=== PATIENT | female | born 1955 | race Caucasian/White ===

== ENCOUNTER 2018-03-22 14:56 | Inpatient (IN) | payer MEDICARE ==
[~2018-03-22] VITALS: Ht 162.6 cm; Wt 83.5 kg
[2018-03-22] MEDS ORDERED: BACL10TA PO (15:16)
[2018-03-22] MEDS ORDERED: HYDR-3972 PO (15:16)
[2018-03-22] MEDS ORDERED: CITR15SO PO (15:16)
[2018-03-22] MEDS ORDERED: CHOL100022 PO (15:17)
[2018-03-22] MEDS ORDERED: POTA10TA21 PO (15:30)
[2018-03-22] MEDS ORDERED: WARF-58 PO (15:30)
[2018-03-22] MEDS ORDERED: DULO60CA63 PO (15:30)
[2018-03-22] MEDS ORDERED: SIMV10TA6 PO (15:30)
[2018-03-22] MEDS ORDERED: HYDR10TA14 PO (15:30)
[2018-03-22] MEDS ORDERED: TEMA30CA PO (15:30)
[2018-03-22] MEDS ORDERED: FOLI1TAB16 PO (15:30)
[2018-03-22] MEDS ORDERED: HYDR200T4 PO (15:30)
[2018-03-22] MEDS ORDERED: SODI650T PO (15:30)
[2018-03-22] MEDS ORDERED: LEVO75TA7 PO (15:30)
[2018-03-22] MEDS ORDERED: MAGN400C PO (15:30)
[2018-03-22] MEDS ORDERED: TOPI50TA PO (15:30)
--- NOTE | 2018-03-22 15:35 | NUR ---
Patient arrived to unit at 1445 via [facility]anz service at [facility], 108/68, 81 pulse, 16 respirations, 97.9 oral temperature, bruises noted to left cheek, brow bone, arm and hip, no complaints of pain at this time, no signs of distress noted, patient is alert and oriented x 4, in stable condition, md thomas and nisreen notified of arrival
[2018-03-22 18:00] VITALS: BP 108/68
--- NOTE | 2018-03-22 19:20 | NUR ---
Receive patient lying in bed. AAOX4. In no acute distress. Patient complained of mild discomfort on left upper arm and left knee. Heat pack provided as this helps per pt. Needs assessed and attended to. Safety measure initiated and call faust within reach.
[2018-03-22 19:54] VITALS: BP 98/51
--- NOTE | 2018-03-22 20:00 | NUR ---
Telephone call to [employer] group to speak to CULINARY CHEF Jan Ferrell to reconcile patient medication and no answer and was paged by the pattern data operator. Awaiting for return call.
--- NOTE | 2018-03-22 21:10 | NUR ---
Telephone call to [employer], crew caller [employer] Aba Medrano to reconcile patient medication. Still awaiting for return call/reconcile medications.
[2018-03-22 21:30] VITALS: BP 120/57
--- NOTE | 2018-03-22 22:25 | NUR ---
Informed Doctor Hernández that we are still waiting for medication to be reconcile by Aba Tolbert and patient already complaining of pain on her left upper and knee area and was also concern about taking her Coumadin dose for tonight. Doctor Betty with order to start patient on Hydrocodone 5/325mg q4hrs PRN for pain and Coumadin 5mg once tonight and PT/INR in AM tomorrow. All orders verified and carried out.
[2018-03-22] MEDS ORDERED: WARFARIN SODIUM 5 MG TABLET PO ONE (22:45)
[2018-03-22] MEDS ORDERED: HYDROCODONE/APAP 5-325MG TABLET PO PRN (23:00)
[2018-03-22] MEDS: HYDROCODONE/APAP 5-325MG TABLET PO PRN (23:12)
[2018-03-22] MEDS ORDERED: WARFARIN SODIUM 5 MG TABLET ONE (23:21)
[2018-03-23 05:02] VITALS: BP 113/50
[2018-03-23] MEDS: HYDROCODONE/APAP 5-325MG TABLET PO PRN ×2 (05:02→22:10)
--- NOTE | 2018-03-23 06:08 | NUR ---
Remains AAOX4. In no acute distress. O2 sat at 100% on RA. Hydrocodone PRN per order provided as well as heat pack for complain of pain on left upper arm and left knee and effective. Able to ambulate to the bathroom with walker and assist. Needs attended to and met. Safety measure maintained and call faust within reach.
[2018-03-23] MEDS: LEVOTHYROXINE SODIUM 75 MCG TABLET PO SCH (06:31)
[2018-03-23] MEDS: FOLIC ACID 1 MG TABLET PO SCH (08:32)
[2018-03-23] MEDS: BACLOFEN 10 MG TABLET PO SCH ×2 (08:32→17:00)
[2018-03-23] MEDS: DULOXETINE 60 MG CAPSULE.DR PO SCH ×2 (08:33→17:00)
[2018-03-23] MEDS: HYDROCORTISONE 10 MG TABLET PO SCH ×2 (08:55→17:37)
[2018-03-23] MEDS: HYDROXYCHLOROQUINE SULFATE 200 MG TABLET PO SCH ×2 (08:55→17:37)
[2018-03-23] MEDS: SODIUM BICARBONATE 650 MG TABLET PO SCH ×3 (08:56→17:37)
[2018-03-23] MEDS: TOPIRAMATE 25 MG TABLET PO SCH ×2 (08:56→21:25)
[2018-03-23] MEDS ORDERED: POTASSIUM CHLORIDE 10 MEQ TAB.PRT.SR PO SCH (09:00)
[2018-03-23 09:10] VITALS: BP 101/47
--- NOTE | 2018-03-23 10:14 | NUR ---
Received patient lying in bed, comfortable in no distress. A/OX4 and able to make all needs known. No c/o pain or discomfort at rest. Breathing unlabored and equal, on RA sat 99%. All due medications given as ordered and tolerated well. Oriented pt. to room surroundings and unit schedule, pt. verbalized clear understanding. Skin assessment performed, noted LUE/RUE scattered skin discoloration, RLE/LLE scattered skin discoloration, skin otherwise intact, see photos taken in chart. On coumadin for DVT ppx, no s/sx of bleeding noted, INR today drawn: 3.02. Safety measures in placed. 2X upper SR up as enabler and for bed mobility. Call light and all frequently used items within reach.
[2018-03-23 15:50] VITALS: BP 110/81
[2018-03-23 17:26] LABS: BASOPHILS # (AUTO) 0.1 K/uL (0.0-8.0); BASOPHILS % (AUTO) 1.4 % (0.0-2.0); EOSINOPHILS # (AUTO) 0.2 K/uL (0.0-0.7); HEMATOCRIT 32.5 % (31.2-41.9); HEMOGLOBIN 10.8 g/dL (10.9-14.3); LYMPHOCYTES # (AUTO) 1.8 K/uL (20.0-40.0); LYMPHOCYTES % (AUTO) 29.7 % (20.5-51.5); MEAN CORPUSCULAR HEMOGLOBIN 33.4 uug (24.7-32.8); MEAN CORPUSCULAR HGB CONC 33 g/dL (32.3-35.6); MEAN CORPUSCULAR VOLUME 100.6 fL (75.5-95.3); MONOCYTES # (AUTO) 0.5 K/uL (2.0-10.0); MONOCYTES % (AUTO) 8.8 % (0.0-11.0); NEUTROPHILS # (AUTO) 3.4 K/uL (1.8-8.9); NEUTROPHILS % (AUTO) 57.1 % (38.5-71.5); PLATELET COUNT (AUTO) 152 K/uL (179-408); RED BLOOD CELL COUNT(AUTO) 3.23 MIL/uL (3.63-4.92)
[2018-03-23 17:30] LABS: CREATININE 1.6 mg/dL (0.6-1.3); POTASSIUM 5.2 mmol/L (3.5-5.1)
[2018-03-23 17:34] LABS: MAGNESIUM 2.2 mg/dL (1.8-2.4)
--- NOTE | 2018-03-23 17:52 | NUR ---
Recent onset of abnormal drowsiness noted from patient, vitals noted at 110/81, pulse 72, respiration 18, 97.8 temperature, oriented to person, place and time, pupils noted at a size 5 and are reactive to light, potassium level noted at 5.2, MD order to hold potassium and order a head CT without contrast STAT.
[2018-03-23 20:00] VITALS: BP 138/71
[2018-03-23] MEDS: SIMVASTATIN 10 MG TABLET PO SCH (21:24)
[2018-03-24 05:40] VITALS: BP 125/72
[2018-03-24] MEDS: LEVOTHYROXINE SODIUM 75 MCG TABLET PO SCH (06:36)
[2018-03-24 08:00] VITALS: BP 152/70
[2018-03-24] MEDS: BACLOFEN 10 MG TABLET PO SCH ×2 (08:56→17:09)
[2018-03-24] MEDS: DULOXETINE 60 MG CAPSULE.DR PO SCH ×2 (08:56→17:09)
[2018-03-24] MEDS: FOLIC ACID 1 MG TABLET PO SCH (08:56)
[2018-03-24] MEDS: HYDROCORTISONE 10 MG TABLET PO SCH ×2 (08:56→17:10)
[2018-03-24] MEDS: HYDROXYCHLOROQUINE SULFATE 200 MG TABLET PO SCH ×2 (08:57→17:10)
[2018-03-24] MEDS: SODIUM BICARBONATE 650 MG TABLET PO SCH ×3 (08:57→17:09)
[2018-03-24] MEDS: TOPIRAMATE 25 MG TABLET PO SCH ×2 (08:57→20:48)
[2018-03-24] MEDS: HYDROCODONE/APAP 5-325MG TABLET PO PRN ×3 (10:36→22:26)
[2018-03-24 16:00] VITALS: BP 124/64
--- NOTE | 2018-03-24 16:08 | NUR ---
INTERDISCIPLINARY TEAM CONFERENCE
[2018-03-24] MEDS: WARFARIN SODIUM 5 MG TABLET PO SCH (17:23)
[2018-03-24 19:45] VITALS: BP 101/65
[2018-03-24] MEDS: SIMVASTATIN 10 MG TABLET PO SCH (20:48)
[2018-03-25] MEDS: HYDROCODONE/APAP 5-325MG TABLET PO PRN ×3 (03:08→22:14)
--- NOTE | 2018-03-25 04:52 | NUR ---
aaox4 ambulates with walker to the BR. Voiding well.needs attended. VSS. kept comfortable. continent of bowel and bladder but still want to wear diaper in case she had accidents, c/o of pain with generalized body pain all over, norco 1 tab given. VSS no acute distress noted. fall precautions maintained. siderails up for safety.
[2018-03-25 05:48] VITALS: BP 98/59
[2018-03-25] MEDS: LEVOTHYROXINE SODIUM 75 MCG TABLET PO SCH (06:32)
[2018-03-25 07:04] LABS: BASOPHILS # (AUTO) 0.1 K/uL (0.0-8.0); EOSINOPHILS # (AUTO) 0.2 K/uL (0.0-0.7); HEMATOCRIT 29.1 % (31.2-41.9); HEMOGLOBIN 9.8 g/dL (10.9-14.3); LYMPHOCYTES # (AUTO) 2.5 K/uL (20.0-40.0); LYMPHOCYTES % (AUTO) 44.4 % (20.5-51.5); MEAN CORPUSCULAR HEMOGLOBIN 33.8 uug (24.7-32.8); MEAN CORPUSCULAR HGB CONC 34 g/dL (32.3-35.6); MEAN CORPUSCULAR VOLUME 100.6 fL (75.5-95.3); MONOCYTES # (AUTO) 0.5 K/uL (2.0-10.0); MONOCYTES % (AUTO) 8.7 % (0.0-11.0); NEUTROPHILS # (AUTO) 2.4 K/uL (1.8-8.9); NEUTROPHILS % (AUTO) 41.9 % (38.5-71.5); PLATELET COUNT (AUTO) 132 K/uL (179-408); WHITE BLOOD COUNT (AUTO) 5.6 K/uL (3.8-11.8)
[2018-03-25 07:10] LABS: CREATININE 1.8 mg/dL (0.6-1.3); POTASSIUM 4.4 mmol/L (3.5-5.1)
[2018-03-25 08:03] VITALS: BP 102/60
[2018-03-25] MEDS: TOPIRAMATE 25 MG TABLET PO SCH ×2 (08:42→20:37)
[2018-03-25] MEDS: HYDROCORTISONE 10 MG TABLET PO SCH ×2 (08:43→16:54)
[2018-03-25] MEDS: HYDROXYCHLOROQUINE SULFATE 200 MG TABLET PO SCH ×2 (08:43→16:55)
[2018-03-25] MEDS: BACLOFEN 10 MG TABLET PO SCH ×2 (08:43→16:54)
[2018-03-25] MEDS: SODIUM BICARBONATE 650 MG TABLET PO SCH ×3 (08:43→16:54)
[2018-03-25] MEDS: DULOXETINE 60 MG CAPSULE.DR PO SCH ×2 (08:43→16:54)
[2018-03-25] MEDS: FOLIC ACID 1 MG TABLET PO SCH (08:43)
--- NOTE | 2018-03-25 10:45 | NUR ---
Patient had syncope episode during interaction with therapy with vital signs: BP 87/45 P 68 SPO2 100%.Patient sent to room at 10am with same response BP 88/43 P 67 SPO2 99%.[place] juice with salt given and elevated lower extremities while talking and pinching the patient with good results. Rapid response was called and came at 1015am and went out estimated 1020am. Patient became alert and verbally responsive during conversation. vital signs BP 110/58 P 67 SPO2 99%. Patient is not in distress. MD Hernández made aware and MD nielson ordered 250cc NS bolus and continue monitoring for responsiveness and vitals. will continue monitor
[2018-03-25] MEDS ORDERED: IV NORMAL SALINE 250 ML BAG IV ONE (12:15)
[2018-03-25] MEDS ORDERED: IV NORMAL SALINE 250 ML IV ONE (12:30)
--- NOTE | 2018-03-25 12:56 | NUR ---
Patient seen and examined by Dr. Ferrell, ordered 500 cc bolus NS and MS 1000 cc, 80cc/hr. change diet from renal to regular diet as patient requested to doctor. will continue monitor
[2018-03-25] MEDS ORDERED: IV NORMAL SALINE 500 ML IV ONE (13:00)
[2018-03-25] MEDS: IV NS 1000 ML 1,000 ML IV PRN (13:39)
[2018-03-25 16:00] VITALS: BP 127/60
[2018-03-25] MEDS: WARFARIN SODIUM 5 MG TABLET PO SCH (16:58)
--- NOTE | 2018-03-25 17:42 | NUR ---
Patient continue monitoring for alertness/syncope episode. no change in level of consciousness. Continue monitoring for pain and management with good effect. will continue monitor
[2018-03-25 19:46] VITALS: BP 120/82
[2018-03-25] MEDS: SIMVASTATIN 10 MG TABLET PO SCH (20:37)
--- NOTE | 2018-03-25 22:58 | NUR ---
resting in bed. alert and oriented x3-4 On IVF's infusing well @80cc/hr via rt arm INT. incontinent of bowel and bladder. kept clean and dry. BP 120/82 HR 71 Resp 16 temp 98.4 pulse ox 97% on 2L. no syncopal episode noted. will monitor patient. fall precautions maintained. siderails up for safety. needs attended.
[2018-03-26] VITALS (7 sets, daily range): BP systolic 88–141; BP diastolic 55–76
[2018-03-26] MEDS: HYDROCODONE/APAP 5-325MG TABLET PO PRN ×3 (06:06→19:41)
[2018-03-26] MEDS: LEVOTHYROXINE SODIUM 75 MCG TABLET PO SCH (06:33)
[2018-03-26 06:44] LABS: BASOPHILS # (AUTO) 0.1 K/uL (0.0-8.0); BASOPHILS % (AUTO) 1.3 % (0.0-2.0); EOSINOPHILS # (AUTO) 0.2 K/uL (0.0-0.7); EOSINOPHILS % (AUTO) 2.8 % (0.0-7.0); HEMATOCRIT 33.4 % (31.2-41.9); LYMPHOCYTES % (AUTO) 31.9 % (20.5-51.5); MEAN CORPUSCULAR HEMOGLOBIN 32.6 uug (24.7-32.8); MEAN CORPUSCULAR HGB CONC 33 g/dL (32.3-35.6); MEAN CORPUSCULAR VOLUME 99.3 fL (75.5-95.3); MONOCYTES # (AUTO) 0.5 K/uL (2.0-10.0); MONOCYTES % (AUTO) 8.2 % (0.0-11.0); NEUTROPHILS # (AUTO) 3.6 K/uL (1.8-8.9); NEUTROPHILS % (AUTO) 55.8 % (38.5-71.5); PLATELET COUNT (AUTO) 151 K/uL (179-408); RED BLOOD CELL COUNT(AUTO) 3.37 MIL/uL (3.63-4.92); WHITE BLOOD COUNT (AUTO) 6.4 K/uL (3.8-11.8)
[2018-03-26 06:55] LABS: CREATININE 1.6 mg/dL (0.6-1.3); PHOSPHOROUS 3.6 mg/dL (2.5-4.9); POTASSIUM 3.9 mmol/L (3.5-5.1)
[2018-03-26 06:58] LABS: IRON, SERUM 63 ug/dL (50-175)
[2018-03-26] MEDS: DULOXETINE 60 MG CAPSULE.DR PO SCH ×2 (08:49→17:59)
[2018-03-26] MEDS: TOPIRAMATE 25 MG TABLET PO SCH ×2 (08:49→20:17)
[2018-03-26] MEDS: BACLOFEN 10 MG TABLET PO SCH ×2 (08:49→17:56)
[2018-03-26] MEDS: SODIUM BICARBONATE 650 MG TABLET PO SCH ×3 (08:49→17:56)
[2018-03-26] MEDS: FOLIC ACID 1 MG TABLET PO SCH (08:49)
[2018-03-26] MEDS: HYDROXYCHLOROQUINE SULFATE 200 MG TABLET PO SCH ×2 (08:50→17:59)
[2018-03-26] MEDS: HYDROCORTISONE 10 MG TABLET PO SCH ×2 (08:50→17:58)
--- NOTE | 2018-03-26 16:19 | NUR ---
ORTHOSTATIC B/P DONE TOLERATED WELL SHE DID NOT C/O DIZZINESS AND LIGHTHEADED. SHE SAYS SHE FEELS TINGLES THROUGHOUT HER BODY WHEN SHE STANDS UP. AMBULATED TO BR WITH ASSISTANCE. NO OTHER COMPLAINTS NOTED
[2018-03-26] MEDS: WARFARIN SODIUM 5 MG TABLET PO SCH (17:00)
--- NOTE | 2018-03-26 18:17 | NUR ---
COUMADIN DOSE HELD PER MACHINIST BRAKE CHANDLER. PT INR ORDERED FOR THE AM
--- NOTE | 2018-03-26 19:55 | NUR ---
Received pt in bed, AAO x 4 watching television. No acute distress noted. Verbally responsive and able to make needs known. C/O pain 8/10 on pain scale. PRN pain medication given per MD order. Tolerated well. All safety measures and fall precautions maintained. Call light and all personal belongings within reach. Will continue to monitor.
[2018-03-26] MEDS: SIMVASTATIN 10 MG TABLET PO SCH (20:17)
[2018-03-26] MEDS: IV NS 1000 ML 1,000 ML IV PRN (23:16)
[2018-03-27] MEDS: HYDROCODONE/APAP 5-325MG TABLET PO PRN ×3 (03:27→20:40)
[2018-03-27 04:00] VITALS: BP 133/61
[2018-03-27] MEDS: LEVOTHYROXINE SODIUM 75 MCG TABLET PO SCH (06:32)
[2018-03-27 07:16] LABS: CREATININE 1.6 mg/dL (0.6-1.3); MAGNESIUM 1.9 mg/dL (1.8-2.4); PHOSPHOROUS 4.3 mg/dL (2.5-4.9); POTASSIUM 3.9 mmol/L (3.5-5.1)
[2018-03-27 07:36] LABS: BASOPHILS # (AUTO) 0.1 K/uL (0.0-8.0); BASOPHILS % (AUTO) 1.3 % (0.0-2.0); EOSINOPHILS # (AUTO) 0.2 K/uL (0.0-0.7); EOSINOPHILS % (AUTO) 3.9 % (0.0-7.0); HEMATOCRIT 30.5 % (31.2-41.9); HEMOGLOBIN 10.2 g/dL (10.9-14.3); LYMPHOCYTES # (AUTO) 2.4 K/uL (20.0-40.0); LYMPHOCYTES % (AUTO) 44.1 % (20.5-51.5); MEAN CORPUSCULAR HEMOGLOBIN 33.7 uug (24.7-32.8); MEAN CORPUSCULAR HGB CONC 33 g/dL (32.3-35.6); MONOCYTES # (AUTO) 0.5 K/uL (2.0-10.0); MONOCYTES % (AUTO) 9.1 % (0.0-11.0); NEUTROPHILS # (AUTO) 2.2 K/uL (1.8-8.9); NEUTROPHILS % (AUTO) 41.6 % (38.5-71.5); PLATELET COUNT (AUTO) 138 K/uL (179-408); RED BLOOD CELL COUNT(AUTO) 3.02 MIL/uL (3.63-4.92); WHITE BLOOD COUNT (AUTO) 5.4 K/uL (3.8-11.8)
[2018-03-27] MEDS: FOLIC ACID 1 MG TABLET PO SCH (08:19)
[2018-03-27] MEDS: HYDROCORTISONE 10 MG TABLET PO SCH ×2 (08:19→16:16)
[2018-03-27] MEDS: DULOXETINE 60 MG CAPSULE.DR PO SCH ×2 (08:19→16:15)
[2018-03-27] MEDS: BACLOFEN 10 MG TABLET PO SCH ×2 (08:19→16:15)
[2018-03-27] MEDS: SODIUM BICARBONATE 650 MG TABLET PO SCH ×3 (08:20→16:15)
[2018-03-27] MEDS: TOPIRAMATE 25 MG TABLET PO SCH ×2 (08:20→20:40)
[2018-03-27] MEDS: HYDROXYCHLOROQUINE SULFATE 200 MG TABLET PO SCH ×2 (08:20→16:15)
[2018-03-27 11:26] VITALS: BP 151/84
--- NOTE | 2018-03-27 14:18 | NUR ---
SBAR report received, board updated. Pt assessed. No acute distress or dizziness reported. VSS. Plan for today discussed. Pt compliant with all routinely scheduled medications, requesting PRN pain medication at the beginning of therapy, administered as ordered. Bed in locked and lowest position with side rails up x2. Pt cooperative with therapies as scheduled. Call light and personal items within reach. IV assessed, no s/s of infection or infiltration, flushed a patent. All comfort needs met. Will continue to monitor for safety.
[2018-03-27] MEDS ORDERED: ERGO500014 PO (14:32)
[2018-03-27] MEDS: IV NS 1000 ML 1,000 ML IV PRN (16:18)
[2018-03-27 16:40] VITALS: BP 124/61
[2018-03-27] MEDS: WARFARIN SODIUM 5 MG TABLET PO SCH (17:59)
[2018-03-27] MEDS ORDERED: HYDROCORTISONE SOD SUCCINATE 100 MG/2 ML VIAL IV ONE (19:45)
[2018-03-27 20:00] VITALS: BP 110/39
--- NOTE | 2018-03-27 20:15 | NUR ---
Patient received at bed. AAO X4. Able to make needs known. Verbally responsive appropriately. No sign of acute distress or SOB was noted. On room air, O2 sat 98%. Has IV line on her right forearm, no sign of inflammation. All safety measures maintained. Bed is on low position, brake and alarm are on. Call light and personal belongings within reach. Continue to monitor.
[2018-03-27] MEDS: SIMVASTATIN 10 MG TABLET PO SCH (20:39)
[2018-03-27] MEDS: TEMAZEPAM 30 MG CAPSULE PO PRN (22:29)
[2018-03-28] MEDS: LEVOTHYROXINE SODIUM 75 MCG TABLET PO SCH (06:31)
[2018-03-28 06:48] VITALS: BP 137/69
[2018-03-28 07:06] LABS: BASOPHILS % (AUTO) 0.8 % (0.0-2.0); EOSINOPHILS % (AUTO) 0.1 % (0.0-7.0); HEMATOCRIT 31.2 % (31.2-41.9); HEMOGLOBIN 10.3 g/dL (10.9-14.3); MEAN CORPUSCULAR HEMOGLOBIN 33.6 uug (24.7-32.8); MEAN CORPUSCULAR HGB CONC 33 g/dL (32.3-35.6); MEAN CORPUSCULAR VOLUME 101.6 fL (75.5-95.3); MONOCYTES # (AUTO) 0.2 K/uL (2.0-10.0); MONOCYTES % (AUTO) 5.6 % (0.0-11.0); NEUTROPHILS # (AUTO) 3.1 K/uL (1.8-8.9); NEUTROPHILS % (AUTO) 70.5 % (38.5-71.5); PLATELET COUNT (AUTO) 132 K/uL (179-408); RED BLOOD CELL COUNT(AUTO) 3.08 MIL/uL (3.63-4.92); WHITE BLOOD COUNT (AUTO) 4.4 K/uL (3.8-11.8)
[2018-03-28 07:20] LABS: CREATININE 1.6 mg/dL (0.6-1.3); POTASSIUM 4.4 mmol/L (3.5-5.1)
[2018-03-28 07:51] VITALS: BP 145/71
[2018-03-28] MEDS: DULOXETINE 60 MG CAPSULE.DR PO SCH ×2 (08:18→17:01)
[2018-03-28] MEDS: BACLOFEN 10 MG TABLET PO SCH ×2 (08:18→17:01)
[2018-03-28] MEDS: FOLIC ACID 1 MG TABLET PO SCH (08:18)
[2018-03-28] MEDS: HYDROXYCHLOROQUINE SULFATE 200 MG TABLET PO SCH ×2 (08:18→17:02)
[2018-03-28] MEDS: TOPIRAMATE 25 MG TABLET PO SCH ×2 (08:19→21:51)
[2018-03-28] MEDS: HYDROCORTISONE 10 MG TABLET PO SCH ×2 (08:19→17:02)
[2018-03-28] MEDS: SODIUM BICARBONATE 650 MG TABLET PO SCH ×3 (08:19→17:02)
[2018-03-28] MEDS: HYDROCODONE/APAP 5-325MG TABLET PO PRN (08:24)
--- NOTE | 2018-03-28 09:23 | NUR ---
SBAR report received, board updated. VSS. Pt able to make needs known, reports pain 8/10, PRN pain medication administered per MD orders. Pt compliant with all routine medication administration and cooperative with therapies as scheduled. Bed in locked and lowest position with side rails up x2. All comfort and safety needs med at this time. Call light and personal items placed within reach. Will continue to monitor.
--- NOTE | 2018-03-28 10:34 | NUR ---
Pt seen by , new order received for INR and PT lab draw. Will continue to monitor accordingly.
[2018-03-28] MEDS ORDERED: ACETAMINOPHEN ES 500 MG TABLET PO PRN (13:45)
[2018-03-28] MEDS: ACETAMINOPHEN ES 500 MG TABLET PO PRN ×2 (13:50→19:45)
[2018-03-28 16:05] VITALS: BP 128/41
[2018-03-28] MEDS: WARFARIN SODIUM 5 MG TABLET PO SCH (17:06)
--- NOTE | 2018-03-28 18:26 | NUR ---
Pt VSS, assisted Pt to restroom and back to sit on edge of bed for dinner. BM x1. Pt reports relief from new order of Tylenol ES. All safety and comfort needs attended to and questions addressed. IV flushed and patent. Call light within reach. Will continue to monitor and endorse to oncoming shift supervisor melting.
[2018-03-28 19:52] VITALS: BP 131/76
--- NOTE | 2018-03-28 19:54 | NUR ---
Received pt in bed, AAO x 4 organizing belongings. No acute distress noted. Verbally responsive and able to make needs known. C/O 4/10 generalized aching pain, requesting Tylenol. PRN Tylenol ES given per MD order. Tolerated well. All safety measures and fall precautions maintained. Noted peripheral IV running NS at 80 cc/hr. No s/s infiltration noted. Denies pain at site. Call light and all personal belongings within reach. Encouraged use of call light when in need of assistance. Will continue to monitor.
[2018-03-28] MEDS: TEMAZEPAM 30 MG CAPSULE PO PRN (21:51)
[2018-03-28] MEDS: SIMVASTATIN 10 MG TABLET PO SCH (21:51)
[2018-03-29] MEDS: IV NS 1000 ML 1,000 ML IV PRN (00:28)
[2018-03-29 05:58] VITALS: BP 128/72
[2018-03-29] MEDS: LEVOTHYROXINE SODIUM 75 MCG TABLET PO SCH (06:47)
[2018-03-29] MEDS: ACETAMINOPHEN ES 500 MG TABLET PO PRN ×3 (06:47→21:25)
[2018-03-29 08:00] VITALS: BP 118/74
--- NOTE | 2018-03-29 08:30 | NUR ---
Received patient awake, alert x4. With ongoing NS at 80cc/hr infusing well over right hand G22. Not in any form of distress. Generalized pain rated as 5/10. Tolerable and refused pain medications at this time. Morning care done.
[2018-03-29] MEDS: TOPIRAMATE 25 MG TABLET PO SCH ×2 (08:33→21:24)
[2018-03-29] MEDS: HYDROCORTISONE 10 MG TABLET PO SCH ×2 (08:33→17:28)
[2018-03-29] MEDS: BACLOFEN 10 MG TABLET PO SCH ×2 (08:33→17:30)
[2018-03-29] MEDS: FOLIC ACID 1 MG TABLET PO SCH (08:33)
[2018-03-29] MEDS: DULOXETINE 60 MG CAPSULE.DR PO SCH ×2 (08:33→17:30)
[2018-03-29] MEDS: HYDROXYCHLOROQUINE SULFATE 200 MG TABLET PO SCH ×2 (08:34→17:27)
[2018-03-29] MEDS: SODIUM BICARBONATE 650 MG TABLET PO SCH ×3 (08:34→17:28)
[2018-03-29] MEDS ORDERED: ERGOCALCIFEROL 50,000 UNIT CAPSULE PO SCH (09:00)
--- NOTE | 2018-03-29 09:04 | NUR ---
Up with physical therapy, tolerating therapy well.
[2018-03-29 16:24] VITALS: BP 150/69
[2018-03-29] MEDS: WARFARIN SODIUM 5 MG TABLET PO SCH (17:27)
[2018-03-29 19:30] VITALS: BP 157/76
[2018-03-29] MEDS: SIMVASTATIN 10 MG TABLET PO SCH (21:24)
[2018-03-29] MEDS: TEMAZEPAM 30 MG CAPSULE PO PRN (21:25)
--- NOTE | 2018-03-30 05:11 | NUR ---
quiet night. aaox4 ambulates to the BR with walker with supervision. patient doing well. pain meds given as ordered. needs attended. VSS. siderails up for safety.
[2018-03-30] MEDS: ACETAMINOPHEN ES 500 MG TABLET PO PRN ×2 (05:51→15:14)
[2018-03-30 06:05] VITALS: BP 121/79
[2018-03-30] MEDS: LEVOTHYROXINE SODIUM 75 MCG TABLET PO SCH (06:24)
[2018-03-30] MEDS: DULOXETINE 60 MG CAPSULE.DR PO SCH ×2 (09:25→17:06)
[2018-03-30] MEDS: TOPIRAMATE 25 MG TABLET PO SCH ×2 (09:25→20:33)
[2018-03-30] MEDS: FOLIC ACID 1 MG TABLET PO SCH (09:25)
[2018-03-30] MEDS: BACLOFEN 10 MG TABLET PO SCH ×2 (09:25→17:06)
[2018-03-30] MEDS: HYDROCORTISONE 10 MG TABLET PO SCH ×2 (09:26→17:06)
[2018-03-30] MEDS: HYDROXYCHLOROQUINE SULFATE 200 MG TABLET PO SCH ×2 (09:26→17:06)
[2018-03-30] MEDS: SODIUM BICARBONATE 650 MG TABLET PO SCH ×3 (09:26→17:06)
--- NOTE | 2018-03-30 09:29 | NUR ---
Received patient awake in bed in stable condition. Continue on therapy for ambulation and daily living activities. On bathroom priviledge. Continue pain management with good effect. no complaint of pain/discomfort. will continue monitor
[2018-03-30] MEDS: WARFARIN SODIUM 5 MG TABLET PO SCH (17:09)
[2018-03-30 17:57] VITALS: BP 141/67
--- NOTE | 2018-03-30 19:03 | NUR ---
Discontinue IV heplock as per patient request. MD Hernández aware.
[2018-03-30 20:09] VITALS: BP 125/71
--- NOTE | 2018-03-30 20:11 | NUR ---
Patient received at bed. AAO X4. Able to make needs known. Verbally responsive appropriately. No sign of acute distress or SOB was noted. On room air, O2 sat 99%. All safety measures maintained. Bed is on low position, brake and alarm are on. Call light and personal belongings within reach. Continue to monitor.
[2018-03-30] MEDS: SIMVASTATIN 10 MG TABLET PO SCH (20:34)
--- NOTE | 2018-03-30 21:12 | NUR ---
Patient refused to have the full dose of Tylenol. She took 500 mg instead of 1000 mg. Continue to monitor.
[2018-03-30] MEDS: TEMAZEPAM 30 MG CAPSULE PO PRN (21:55)
--- NOTE | 2018-03-31 05:59 | NUR ---
End of shift note, Patient remained stable throughout the shift. No acute distress or SOB was noted. Pain assessed and reassessed after medication. Medication given as ordered. All needs attended promptly. Stand by assisted her to the bathroom every time patient needed. Safety measures maintained. Keep her clean and comfortable. Bed in low position, alarm and brake on. Call light and personal belongings within reach. Continue to monitor and will endorse to day shift nurse.
[2018-03-31 06:28] VITALS: BP 126/61
[2018-03-31] MEDS: LEVOTHYROXINE SODIUM 75 MCG TABLET PO SCH (06:30)
[2018-03-31 08:00] VITALS: BP 127/61
--- NOTE | 2018-03-31 08:30 | NUR ---
Received patient, awake, alert x4. Not in any form of distress. With tolerable, generalized pain. PRN pain medications given. Will continue to monitor. No associated dizziness or SOB noted.
[2018-03-31] MEDS: BACLOFEN 10 MG TABLET PO SCH ×2 (08:38→17:39)
[2018-03-31] MEDS: FOLIC ACID 1 MG TABLET PO SCH (08:38)
[2018-03-31] MEDS: DULOXETINE 60 MG CAPSULE.DR PO SCH ×2 (08:39→17:39)
[2018-03-31] MEDS: SODIUM BICARBONATE 650 MG TABLET PO SCH ×3 (08:39→17:38)
[2018-03-31] MEDS: TOPIRAMATE 25 MG TABLET PO SCH ×2 (08:39→21:03)
[2018-03-31] MEDS: HYDROCORTISONE 10 MG TABLET PO SCH ×2 (08:39→17:39)
[2018-03-31] MEDS: HYDROXYCHLOROQUINE SULFATE 200 MG TABLET PO SCH ×2 (08:39→17:39)
[2018-03-31] MEDS: ACETAMINOPHEN ES 500 MG TABLET PO PRN ×3 (08:41→22:09)
--- NOTE | 2018-03-31 10:00 | NUR ---
Up with physical therapy, shower done with minimal assistance. Tolerated well.
--- NOTE | 2018-03-31 13:43 | NUR ---
INTERDISCIPLINARY TEAM CONFERENCE
[2018-03-31 14:06] LABS: CALCITRIOL VIT D,1,25 DIHYDROX 99.2 pg/mL (19.9-79.3)
[2018-03-31 17:00] VITALS: BP 133/77
[2018-03-31 20:32] VITALS: BP 142/64
[2018-03-31] MEDS: SIMVASTATIN 10 MG TABLET PO SCH (21:02)
[2018-03-31] MEDS: TEMAZEPAM 30 MG CAPSULE PO PRN (22:07)
[2018-04-01 05:29] VITALS: BP 144/64
--- NOTE | 2018-04-01 05:47 | NUR ---
quiet night no acute distress noted. needs attended. OOB to the BR with walker. voiding freely. Medicated with tylenol and sleeping pill . slept most of the shift will monitor patient.
[2018-04-01] MEDS: LEVOTHYROXINE SODIUM 75 MCG TABLET PO SCH (06:34)
[2018-04-01 06:49] LABS: BASOPHILS # (AUTO) 0.1 K/uL (0.0-8.0); EOSINOPHILS # (AUTO) 0.2 K/uL (0.0-0.7); EOSINOPHILS % (AUTO) 3.4 % (0.0-7.0); HEMATOCRIT 29.2 % (31.2-41.9); HEMOGLOBIN 9.8 g/dL (10.9-14.3); LYMPHOCYTES # (AUTO) 2.6 K/uL (20.0-40.0); LYMPHOCYTES % (AUTO) 47.1 % (20.5-51.5); MEAN CORPUSCULAR HEMOGLOBIN 33.7 uug (24.7-32.8); MEAN CORPUSCULAR HGB CONC 34 g/dL (32.3-35.6); MEAN CORPUSCULAR VOLUME 100.4 fL (75.5-95.3); MONOCYTES # (AUTO) 0.5 K/uL (2.0-10.0); MONOCYTES % (AUTO) 9.5 % (0.0-11.0); NEUTROPHILS # (AUTO) 2.1 K/uL (1.8-8.9); PLATELET COUNT (AUTO) 127 K/uL (179-408); RED BLOOD CELL COUNT(AUTO) 2.91 MIL/uL (3.63-4.92); WHITE BLOOD COUNT (AUTO) 5.5 K/uL (3.8-11.8)
[2018-04-01 07:06] LABS: CREATININE 1.6 mg/dL (0.6-1.3); POTASSIUM 3.5 mmol/L (3.5-5.1)
[2018-04-01] MEDS: FOLIC ACID 1 MG TABLET PO SCH (08:07)
[2018-04-01] MEDS: SODIUM BICARBONATE 650 MG TABLET PO SCH ×3 (08:07→17:11)
[2018-04-01] MEDS: HYDROCORTISONE 10 MG TABLET PO SCH ×2 (08:07→17:12)
[2018-04-01] MEDS: DULOXETINE 60 MG CAPSULE.DR PO SCH ×2 (08:07→17:11)
[2018-04-01] MEDS: HYDROXYCHLOROQUINE SULFATE 200 MG TABLET PO SCH ×2 (08:08→17:08)
[2018-04-01] MEDS: TOPIRAMATE 25 MG TABLET PO SCH ×2 (08:08→21:08)
[2018-04-01] MEDS: BACLOFEN 10 MG TABLET PO SCH ×2 (08:08→17:11)
[2018-04-01] MEDS: ACETAMINOPHEN ES 500 MG TABLET PO PRN ×2 (08:12→21:32)
--- NOTE | 2018-04-01 10:05 | NUR ---
Received patient awake in bed in stable condition. Continue hterapy for unsteady gait and ambulation. not in distress. complaint of lowe extremities pain scale of 6 out of 19. tylenol 1000mg every 8 hours PRN given. will continue monitor
[2018-04-01] MEDS: WARFARIN SODIUM 5 MG TABLET PO SCH (17:10)
[2018-04-01] MEDS ORDERED: ACETAMINOPHEN ES 500 MG TABLET PO PRN (17:30)
[2018-04-01 18:35] VITALS: BP 104/61
[2018-04-01 20:00] VITALS: BP 110/66
--- NOTE | 2018-04-01 20:05 | NUR ---
Patient received at bed. AAO X4. Able to make needs known. Verbally responsive appropriately. No sign of acute distress or SOB was noted. On room air, O2 sat 98%. All safety measures maintained. Bed is on low position, brake and alarm are on. Call light and personal belongings within reach. Continue to monitor.
[2018-04-01] MEDS: SIMVASTATIN 10 MG TABLET PO SCH (21:08)
--- NOTE | 2018-04-01 21:13 | NUR ---
Tylenol order was changed from 500 mg Q6hPRN to 500 mg Q4[address] based on Dr. Hernández's order. The previous order of Tylenol 1000 mg Q8h PRN was DC. Dr. Hernández was aware.
[2018-04-02] MEDS: ACETAMINOPHEN ES 500 MG TABLET PO PRN ×4 (02:58→21:07)
--- NOTE | 2018-04-02 05:03 | NUR ---
End of shift note, Patient remained stable throughout the shift. No acute distress or SOB was noted. Pain assessed and reassessed after medication. Medication given as ordered. All needs attended promptly. Stand-by assisted her to the bathroom every time patient needed. Safety measures maintained. Keep her clean and comfortable. Bed in low position, alarm and brake on. Call light and personal belongings within reach. Continue to monitor and will endorse to day shift nurse.
[2018-04-02] MEDS: LEVOTHYROXINE SODIUM 75 MCG TABLET PO SCH (06:30)
[2018-04-02 06:35] VITALS: BP 136/69
[2018-04-02] MEDS: DULOXETINE 60 MG CAPSULE.DR PO SCH ×2 (09:17→16:20)
[2018-04-02] MEDS: HYDROCORTISONE 10 MG TABLET PO SCH ×2 (09:17→16:23)
[2018-04-02] MEDS: BACLOFEN 10 MG TABLET PO SCH ×2 (09:18→16:20)
[2018-04-02] MEDS: FOLIC ACID 1 MG TABLET PO SCH (09:18)
[2018-04-02] MEDS: TOPIRAMATE 25 MG TABLET PO SCH ×2 (09:19→21:07)
[2018-04-02] MEDS: SODIUM BICARBONATE 650 MG TABLET PO SCH ×3 (09:19→16:20)
[2018-04-02] MEDS: HYDROXYCHLOROQUINE SULFATE 200 MG TABLET PO SCH ×2 (09:20→16:21)
--- NOTE | 2018-04-02 19:00 | NUR ---
Received patient awake during bedside reporting rounds. Denies any pain at this time. Safety measure and fall precaution maintained. Continue care as planned.
[2018-04-02] MEDS: SIMVASTATIN 10 MG TABLET PO SCH (21:07)
[2018-04-02 21:51] VITALS: BP 152/67
[2018-04-03] MEDS: ACETAMINOPHEN ES 500 MG TABLET PO PRN ×3 (01:07→12:49)
--- NOTE | 2018-04-03 05:44 | NUR ---
Shift End Report: Very pleasant patient, very cooperative and self care. No fall/injury. No syncope. Still bruises on left sided of the body visible. Medicated twice with Tylenol with help. No further complaint presented. All needs attended. Continue current plan of care.
[2018-04-03 05:54] VITALS: BP 136/60
[2018-04-03] MEDS: LEVOTHYROXINE SODIUM 75 MCG TABLET PO SCH (06:38)
[2018-04-03 08:00] VITALS: BP 113/49
[2018-04-03] MEDS: FOLIC ACID 1 MG TABLET PO SCH (08:48)
[2018-04-03] MEDS: BACLOFEN 10 MG TABLET PO SCH ×2 (08:48→17:24)
[2018-04-03] MEDS: DULOXETINE 60 MG CAPSULE.DR PO SCH ×2 (08:48→17:24)
[2018-04-03] MEDS: HYDROXYCHLOROQUINE SULFATE 200 MG TABLET PO SCH ×2 (08:49→17:23)
[2018-04-03] MEDS: SODIUM BICARBONATE 650 MG TABLET PO SCH ×3 (08:49→17:22)
[2018-04-03] MEDS: TOPIRAMATE 25 MG TABLET PO SCH (08:50)
[2018-04-03] MEDS: HYDROCORTISONE 10 MG TABLET PO SCH ×2 (08:51→17:23)
--- NOTE | 2018-04-03 09:50 | NUR ---
Received pt. in bed with eyes open comfortable. A/OX4 and able to make her needs known. No signs of acute distress noted. Pt. denies SOB or CP. All due AM medications administered as ordered and tolerated well. C/O of mild lower back pain, PRN tylenol given as ordered. No new skin condition noted .Pt. to d/c home today, will obtain d/c order from Dr. Hernández. All safety measure and fall precaution in place. Call light and all frequently used items in place.
[2018-04-03 15:48] VITALS: BP 145/62
[2018-04-03] MEDS: WARFARIN SODIUM 5 MG TABLET PO SCH (17:00)
--- NOTE | 2018-04-03 19:35 | NUR ---
Discharge note: Obtained and received discharge order from Dr. Hernández. Pt. to d/c home with home health to provide PT/OT/RN services. No significant changed during this shift. Discussed and explained discharge materials with pt. Pt. verbalized clear understanding with no new concerns. PT/INR ordered for STAT at around 4 PM as pt. INR not drawn this AM. No new skin condition noted, pictures taken and placed in chart. Pt. stable, denies CP or SOB. 6:15 PM DTR - [facility]DEE on-site to burr picker pt. All concerns discussed with DTR and PT. Unable to administered coumadin as scheduled due to no INR result at the time. Pt. to be informed of results when available. All d/c documents signed by pt. Belongings are all accountable for. Pt. d/c via W/C at 6:30 PM with DTR. 6:50 received result for INR, placed call to pt. [phone] x 3, unable to touchbase but left with voicemail. Dr. Hernández aware of discharge.
== END 2018-04-03 18:45 | disposition home health service (06) | DRG 948 ==
PROVIDERS: ADMIT Physical Medicine & Rehabilitation Pain Medicine; ATTEND Physical Medicine & Rehabilitation Pain Medicine
DX: R53.81 Other malaise (principal); E27.40 Unspecified adrenocortical insufficiency; E44.1 Mild protein-calorie malnutrition; J84.9 Interstitial pulmonary disease, unspecified; N17.9 Acute kidney failure, unspecified; E87.2 Acidosis; E03.9 Hypothyroidism, unspecified; E55.9 Vitamin D deficiency, unspecified; Z68.31 Body mass index [BMI] 31.0-31.9, adult; E78.5 Hyperlipidemia, unspecified; I25.10 Atherosclerotic heart disease of native coronary artery without angina pectoris; G62.9 Polyneuropathy, unspecified; F32.9 Major depressive disorder, single episode, unspecified; M19.90 Unspecified osteoarthritis, unspecified site; M32.9 Systemic lupus erythematosus, unspecified; N18.9 Chronic kidney disease, unspecified; Z86.711 Personal history of pulmonary embolism; Z86.718 Personal history of other venous thrombosis and embolism; Z79.01 Long term (current) use of anticoagulants; D64.9 Anemia, unspecified; E66.01 Morbid (severe) obesity due to excess calories; Z98.84 Bariatric surgery status; M89.9 Disorder of bone, unspecified; Z88.7 Allergy status to serum and vaccine; Z88.8 Allergy status to other drugs, medicaments and biological substances; Z88.1 Allergy status to other antibiotic agents; Z91.013 Allergy to seafood; Z95.810 Presence of automatic (implantable) cardiac defibrillator
CPT/HCPCS: 36415; 70450; 82533; 82652; 83550; 83735; 83970; 84100; 85025; 85610; 92523; 92526; 92610; 97110; 97112; 97116; 97530; 97535; A4663; A9150; J1720; J7030; J7040; J7042; J7050; J7060